=== PATIENT | female | born 1995 | race Caucasian/White ===

== ENCOUNTER 2021-02-26 14:29 | Observation (INO) | END 2021-02-26 16:00 | disposition home or self-care (01) | LOC: 1NENULAB | PROVIDERS: ADMIT Obstetrics & Gynecology; ATTEND Obstetrics & Gynecology ==

== ENCOUNTER 2021-02-27 13:18 | Inpatient (IN) ==
[2021-02-27] MEDS ORDERED: Metoclopramide 10 MG/2 ML VIAL IVP PRN (14:20)
[2021-02-27] MEDS ORDERED: Ondansetron 4 MG/2 ML VIAL IVP PRN (14:20)
[2021-02-27] MEDS ORDERED: Famotidine 20 MG/2 ML VIAL IVP PRN (14:20)
[2021-02-27] MEDS ORDERED: Naloxone 0.4 MG/ML INJ IVP PRN (14:20)
[2021-02-27] MEDS ORDERED: *HR* Nalbuphine 10 MG/ML AMPUL IV PRN (14:20)
[2021-02-27] MEDS ORDERED: Oxytocin 20 units/ LR 1000 mL 20 UNIT/1,000 ML BAG IVC SCH (14:30)
[2021-02-27 14:50] LABS: Basophils % 0.3 %; Eosinophils % 0.4 %; Hematocrit 27.4 % (35.3-44.9); Hemoglobin 8.3 g/dL (11.5-15.4); Immature Granulocytes % 0.6 % (0-4); Lymphocytes # 1.5 K/mcL (0.6-4.6); Lymphocytes % 14.7 %; Mean Corpuscular HGB Conc 30.3 g/dL (31.6-35.5); Mean Corpuscular Hemoglobin 23.1 pg (28.0-33.3); Mean Corpuscular Volume 76.1 fL (83.0-100.0); Mean Platelet Volume 12.7 fL (9.4-12.4); Monocytes # 0.6 K/mcL (0.0-1.3); Monocytes % 5.9 %; Neutrophils # 8.1 K/mcL (1.6-8.9); Platelet Count 239 K/mcL (140-400); Red Cell Distribution Width 13.7 % (11.5-14.5); Segmented Neutrophils % 78.1 %; White Blood Count 10.4 K/mcL (4.3-11.1)
[2021-02-27] MEDS: Ringers Solution, Lactated 1,000 ML IVC SCH (14:50)
[2021-02-27 14:59] LABS: Amphetamine Screen,Urine Negative ng/mL (Cutoff=1000); Barbiturate Screen,Urine Negative ng/mL (Cutoff=200); Benzodiazepines Screen,Urine Negative ng/mL (Cutoff=200); Cannabinoid Screen,Urine Negative ng/mL (Cutoff = 50); Cocaine Screen,Urine Negative ng/mL (Cutoff= 300); Opiate Screen,Urine Negative ng/mL (Cutoff=300); Phencyclidine Screen,Urine Negative ng/mL (Cutoff=25)
[2021-02-27] MEDS ORDERED: EPHEDrine 50 MG/ML VIAL IVP PRN (18:22)
[2021-02-27] MEDS ORDERED: Epidural Premix (fent/bupiv) 110 ML EP SCH (18:30)
[2021-02-27] MEDS ORDERED: *HR* FentaNYL (PF) 100 MCG/2 ML VIAL ONE (18:32)
[2021-02-27] MEDS ORDERED: Ropivacaine/PF 0.2% 20 ML VIAL ONE (18:32)
[2021-02-28] MEDS ORDERED: SODIUM CHLORIDE 0.9% IVPB SCH (07:00)
[2021-02-28] MEDS ORDERED: GENTAMICIN IVPB SCH (07:00)
[2021-02-28] MEDS: Ringers Solution, Lactated 1,000 ML IVC SCH (07:37)
[2021-02-28] MEDS ORDERED: Ampicillin 2,000 MG in 0.9 % Sodium Chloride Mini Bag 100 ML IVPB SCH (09:00)
[2021-02-28] MEDS ORDERED: Gentamicin 80 MG in 0.9 % Sodium Chloride 100 ML IVPB SCH (09:00)
[2021-02-28] MEDS ORDERED: Oxytocin 20 units/ LR 1000 mL 20 UNIT/1,000 ML BAG IVC ONE (13:56)
[2021-02-28] MEDS ORDERED: Acetaminophen 325 MG TABLET PO PRN (13:56)
[2021-02-28] MEDS ORDERED: Measles/Mumps/Rubella Vacc 0.5 ML VIAL SQ PRN (13:56)
[2021-02-28] MEDS ORDERED: Rho Immune Globulin 1,500 UNIT SYRINGE IM PRN (13:56)
[2021-02-28] MEDS ORDERED: Lanolin 7 G OINT...G. TP PRN (13:56)
[2021-02-28] MEDS ORDERED: Oxytocin 20 units/ LR 1000 mL 20 UNIT/1,000 ML BAG IVC SCH (13:56)
[2021-02-28] MEDS ORDERED: Benzocaine/Menthol 56 GM AEROSOL SPRAY TP PRN (13:56)
[2021-02-28] MEDS ORDERED: Ibuprofen 600 MG TABLET PO PRN (13:56)
[2021-02-28] MEDS ORDERED: Ferumoxytol 510 MG in 0.9 % Sodium Chloride 100 ML IVPB ONE (15:09)
[2021-03-01 05:58] LABS: Eosinophils % 0.4 %
[2021-03-01 06:00] LABS: Basophils % 0.2 %; Eosinophils # 0.1 K/mcL (0.0-0.6); Immature Granulocytes % 0.6 % (0-4); Lymphocytes # 1.6 K/mcL (0.6-4.6); Lymphocytes % 9.6 %; Mean Corpuscular HGB Conc 30.7 g/dL (31.6-35.5); Mean Corpuscular Hemoglobin 23.1 pg (28.0-33.3); Mean Corpuscular Volume 75.4 fL (83.0-100.0); Mean Platelet Volume 12.3 fL (9.4-12.4); Monocytes # 0.9 K/mcL (0.0-1.3); Monocytes % 5.4 %; Neutrophils # 13.6 K/mcL (1.6-8.9); Platelet Count 174 K/mcL (140-400); Red Blood Count 1.99 M/mcL (3.82-4.97); Red Cell Distribution Width 13.8 % (11.5-14.5); Segmented Neutrophils % 83.8 %; White Blood Count 16.2 K/mcL (4.3-11.1)
[2021-03-01 06:04] LABS: Hemoglobin 4.6 g/dL (11.5-15.4)
[2021-03-01] MEDS ORDERED: 0.9 % Sodium Chloride 250 ML ONE (06:34)
[2021-03-01] MEDS ORDERED: Prenatal Vit/FA 1 EACH TABLET PO SCH (09:00)
[2021-03-01 22:39] LABS: Basophils % 0.1 %; Eosinophils # 0.1 K/mcL (0.0-0.6); Eosinophils % 0.4 %; Hematocrit 30.5 % (35.3-44.9); Hemoglobin 9.8 g/dL (11.5-15.4); Immature Granulocytes % 1.5 % (0-4); Lymphocytes # 1.8 K/mcL (0.6-4.6); Mean Corpuscular HGB Conc 32.1 g/dL (31.6-35.5); Mean Corpuscular Hemoglobin 26.3 pg (28.0-33.3); Mean Platelet Volume 11.6 fL (9.4-12.4); Monocytes # 1.1 K/mcL (0.0-1.3); Monocytes % 5.3 %; Neutrophils # 17.1 K/mcL (1.6-8.9); Nucleated Red Blood Cells 0.1 /100 WBC (0); Platelet Count 221 K/mcL (140-400); Red Blood Count 3.72 M/mcL (3.82-4.97); Red Cell Distribution Width 16.1 % (11.5-14.5); Segmented Neutrophils % 83.7 %; White Blood Count 20.4 K/mcL (4.3-11.1)
[2021-03-01 23:19] VITALS: O2SAT 99
[2021-03-02 08:26] VITALS: BP 125/81; PULSE 73; TEMP 97.9
== END 2021-03-02 10:59 | disposition home or self-care (01) | DRG 560 ==
LOC: 1NENULAB 13:18 → 1NENUOBS 02-28 12:49
PROVIDERS: ADMIT Student in an Organized Health Care Education/Training Program; ATTEND Student in an Organized Health Care Education/Training Program